=== PATIENT | male | born 1970 | race Caucasian/White ===

== ENCOUNTER 2024-07-16 08:38 | Outpatient (RCR) | payer BC, SELFPAY | END 2024-07-16 23:59 | disposition home or self-care (01) | LOC: ROT 08:38 | PROVIDERS: ATTENDING PHYSICIAN Family Medicine | DX: I69.320 Aphasia following cerebral infarction (principal); I69.392 Facial weakness following cerebral infarction; Z73.6 Limitation of activities due to disability | CPT/HCPCS: 92507; 92523; 97167; 97530; 97535 ==

== ENCOUNTER 2024-08-18 09:38 | Outpatient (RCR) | payer BC, SELFPAY | END 2024-08-18 23:59 | disposition home or self-care (01) | LOC: ROT 09:38 | PROVIDERS: ATTENDING PHYSICIAN Family Medicine | DX: I69.320 Aphasia following cerebral infarction (principal); I69.392 Facial weakness following cerebral infarction; Z73.6 Limitation of activities due to disability; I69.328 Other speech and language deficits following cerebral infarction | CPT/HCPCS: 92507; 97530; 97535; 97537 ==

== ENCOUNTER 2024-09-15 06:46 | Outpatient (RCR) | payer BC, SELFPAY | END 2024-09-15 23:59 | disposition home or self-care (01) | LOC: ROT 06:46 | PROVIDERS: ATTENDING PHYSICIAN Family Medicine | DX: I69.320 Aphasia following cerebral infarction (principal); I69.392 Facial weakness following cerebral infarction; Z73.6 Limitation of activities due to disability; I69.328 Other speech and language deficits following cerebral infarction | CPT/HCPCS: 92507; 97530; 97537 ==

== ENCOUNTER 2024-09-29 06:44 | Outpatient (RCR) | payer BC, SELFPAY | END 2024-09-29 23:59 | disposition home or self-care (01) | LOC: ROT 06:44 | PROVIDERS: ATTENDING PHYSICIAN Family Medicine | DX: I69.320 Aphasia following cerebral infarction (principal); I69.392 Facial weakness following cerebral infarction; Z73.6 Limitation of activities due to disability; I69.328 Other speech and language deficits following cerebral infarction | CPT/HCPCS: 92507 ==